=== PATIENT | female | born 1965 | race Caucasian/White ===

== ENCOUNTER → 2017-09-27 17:27 | Emergency (ER) | payer OTHER, MEDICAID ==
[2017-09-27] MEDS: IBUPROFEN 600 MG TAB PO (16:58)
[2017-09-27] MEDS: ACETAMINOPHEN 500 MG TAB PO (16:58)
== END | disposition home or self-care (01) ==
DX: J40 Bronchitis, not specified as acute or chronic (principal)
CPT/HCPCS: 99284; Z7502